=== PATIENT | female | born 1940 | race Two or more races ===

== ENCOUNTER 2024-03-16 20:51 | Emergency (ER) | payer MEDICARE, MEDICAID, SELFPAY ==
[2024-03-16 21:50] VITALS: BP 218/89; BP 230/134; PULSE 70; RESP 18; TEMP 36.8; O2SAT 98; BMI 23.3
--- NOTE | 2024-03-16 22:02 | EDRME_ITS ---
Rapid Medical Screening Exam [facility] Arrival date/time: 03/16/24 20:51 83F with history of HTN (on Losartan) presents to ED with 2 hours of LOZANO and elevated BP. Chief Complaint: General Adult/Misc Complain Vital signs: Vital Signs Temperature 98.3 F 03/16/24 21:50 Pulse Rate 70 03/16/24 21:50 Respiratory Rate 18 03/16/24 21:50 Blood Pressure 218/89 H 03/16/24 21:50 Pulse Oximetry (%) 98 03/16/24 21:50 Oxygen Delivery Method Room Air 03/16/24 21:50
--- NOTE | 2024-03-16 22:02 | XR_ITS ---
Examination: CT brain head without contrast. 2-D sagittal coronal reconstructions Date and time of exam:March 16, 2024 1040 hrs. Indications: Onset headache today Comparison: January 27, 2024 CTDI: vol (mGy):48.50 DLP: (mGycm):994 Technique: Multiple CT axial sections of the brain have been obtained, 5 mm slice thickness. Contrast has not been administered. 2-D sagittal, coronal reconstructions have been obtained Low dose protocols were performed. One or more of the following dose reduction techniques were used; automated exposure control, adjustment of the mA and/or KV according to patient size, use of iterative reconstruction technique. Findings: No significant ventricular enlargement. Intra-axial or extra-axial hemorrhage density is not seen. No mass effect or midline shift Basal cisterns are not remarkable. Fourth ventricle is midline. Cranial vault intact. Impression: Negative for acute hemorrhage, mass effect or midline shift
[2024-03-16 22:20] VITALS: BP 218/89; PULSE 70
[2024-03-16] MEDS: hydrALAZINE HCL 25 MG TABLET PO (22:20)
[2024-03-17 00:41] VITALS: BP 233/81
[2024-03-17 01:07] VITALS: BP 210/81; PULSE 70; RESP 21; TEMP 37.1; O2SAT 97
--- NOTE | 2024-03-17 01:43 | EDNOTE_ITS ---
ED General RME/HPI General Chief complaint: General Adult/Misc Complain Stated complaint: BP high Arrival date/time: 03/16/24 20:51 RME / HPI RME / HPI narrative: 03/16/24 20:51 83F with history of HTN (on Losartan) presents to ED with 2 hours of LOZANO and elevated BP. ---- Dr. Pate?s Main ED Evaluation: 83yo female with pmhx HTN presents to the ED for a chief complaint of elevated blood pressure. Patient states she checked her blood pressure three time at home last night and had a systolic blood pressure of over 200 each time, so she came in for evaluation. She endorses associated neck pain and hot flashes. She denies any headache, dizziness, chest pain, shortness of breath, abdominal pain, back pain or any other associated symptoms. Denies any falls, injuries or loss of consciousness. Related Data Home Medications ?Medication ?Instructions ?Recorded ?Confirmed fenofibrate 160 mg tablet 160 mg PO QDAY ##0 12/29/13 05/18/18 thyroid (pork) 60 mg tablet 60 mg PO QDAY #0 tabs 12/29/13 05/18/18 (Roberta Thyroid) pantoprazole 40 mg tablet,delayed 40 mg PO QDAY ##0 08/19/14 05/18/18 release (Protonix) esterified 1 tab PO QDAY 05/18/18 05/18/18 estrogens-methyltestosterone 0.625 mg-1.25 mg tablet fenofibrate 160 mg tablet 160 mg PO QDAY 05/18/18 05/18/18 pravastatin 40 mg tablet 40 mg PO QDAY 05/18/18 05/18/18 valsartan 160 mg tablet 160 mg PO QDAY 05/18/18 05/18/18 Previous Rx's ?Medication ?Instructions ?Recorded diclofenac 1 % and meth salicylate See Rx Instructions .Route 04/17/22 30 %-menthol 10 % topical gel,cream .COMPLEX PRN pain #418 grams amlodipine 5 mg tablet 5 mg PO QDAY #30 tabs 05/10/22 Allergies Allergy/AdvReac Type Severity Reaction Status Date / Time codeine Allergy Severe SEVERE Verified 04/17/22 11:05 NAUSEA AND VOMITING Penicillins Allergy Unknown Verified 05/09/22 18:42 Review of Systems Review of Systems Systems Reviewed: All systems reviewed, normal except as documented Past Medical History Past Medical History NEUROLOGIC: Negative Neurological Disorders, Seizures or Head Trauma CARDIAC: Positive Cardiac Disorders, Hypercholesterolemia and Hypertension; Negative Congestive Heart Failure RESPIRATORY: Negative Chronic Obstructive Pulmonary Disease (COPD) GASTROINTESTINAL: Positive Gastrointestinal Disorders, Ulcer and Gastroesophageal Reflux Disease GENITOURINARY: Negative Genitourinary Disorders or Renal Disease REPRODUCTIVE: Negative Previous Pregnancies MUSCULOSKELETAL: Positive Musculoskeletal Disorders, Osteoporosis and Degenerative Disk Disease ENT: Negative Head Trauma ENDOCRINE: Positive Diabetes Mellitus Type 2; Negative Endocrine Disorders, Diabetes Mellitus Type 1 or Hypothyroidism HEMATOLOGIC: Negative Blood Disorders or Anemia PSYCHO/SOCIAL: Positive Depression and Anxiety OTHER HISTORY: Negative Hospitalization, Developmental Delay, Falls, Blood Transfusions, Anesthesia Reactions, Chemotherapy or Radiation Therapy Surgical History SURGICAL: Positive Hysterectomy Social History SMOKING STATUS: Former smoker SUBSTANCE USE: does not use ED Exam Narrative Physical exam: GENERAL APPEARANCE: alert and oriented x 4, well-developed, well-nourished, no acute distress VITALS: All vitals were reviewed and the pulse ox is 97% on room air, which is normal according to my interpretation. HEENT: Normocephalic, atraumatic; pupils equal, round, reactive to light; EOMI; mucous membranes pink, moist; oropharynx clear NECK: Supple LUNGS: CTABL; no wheezes, no rales, no rhonchi HEART: Regular rate, regular rhythm; normal S1, S2; no murmurs ABDOMEN: non distended; normal BS; soft, no tenderness, no guarding, no rebound; no masses, no organomegaly, no hernia BACK: no CVA tenderness EXTREMITIES: atraumatic; no edema NEUROLOGIC: awake; alert and oriented x4; cranial nerves II-XII grossly intact; no focal sensory or motor deficits PSYCHIATRIC: appropriate mood and affect SKIN: warm, dry, normal color; no rashes Course Quality Measures none Orders Category Date Time Status EKG (ED ONLY) *Do not use* NOW Care 03/16/24 21:[address] head/brain wo con Stat Exams 03/16/24 22:02 Completed EKG (ED Only) Stat Exams 03/16/24 21:08 Ordered cloNIDine HCL [Catapres] Med 03/17/24 02:08 Discontinued 0.1 mg PO X1 ONE hydrALAZINE HCL [Apresoline] Med 03/16/24 22:03 Discontinued 25 mg PO X1 ONE Vital Signs Vital signs: Vital Signs Temperature 98.3 F 11/27/24 21:50 Pulse Rate 70 03/16/24 21:50 Respiratory Rate 18 03/16/24 21:50 Blood Pressure 218/89 H 03/16/24 21:50 Pulse Oximetry (%) 98 03/16/24 21:50 Oxygen Delivery Method Room Air 03/16/24 21:50 [facility] Patient data External records reviewed:: [facility] previous records (Per chart review, patient was seen here on 05/09/22 for hypertensive urgency.) Clinical information provided by:: patient Social determinants that could affect healthcare access:: none Patient has the following chronic illnesses:: HTN, HLD, DM How is presenting disease/condition affected by chronic disease/condition?: exacerbated by Evaluation data The following diagnostics were reviewed and interpreted by me:: radiology exam(s) and EKG tracing(s) Lab and/or radiology exams considered but not ordered:: none Interpretation Summary: EKG done at 2155, NSR, rate of 73, normal axis, no ectopy, no acute ischemia, according to my interpretation. ---- [facility] Report Signed Patient: DYLON CHAVEZ Record#: [id number] Birthdate: 1940 Age/Sex: 83 / F Location: [facility] Attending Dr: Ordering Physician: Ron Zambrano PA-C Date of Service: 03/16/24 Procedure(s): CT head/brain wo con Accession Number(s): [id number] cc: Erich Valenzuela MD; NO PRIMARY/FAMILY,PHYSICIAN; Ron Zambrano PA-C~ Examination: CT brain head without contrast. 2-D sagittal coronal reconstructions Date and time of exam:March 16, 2024 1040 hrs. Indications: Onset headache today Comparison: January 27, 2024 CTDI: vol (mGy):48.50 DLP: (mGycm):994 Technique: Multiple CT axial sections of the brain have been obtained, 5 mm slice thickness. Contrast has not been administered. 2-D sagittal, coronal reconstructions have been obtained Low dose protocols were performed. One or more of the following dose reduction techniques were used; automated exposure control, adjustment of the mA and/or KV according to patient size, use of iterative reconstruction technique. Findings: No significant ventricular enlargement. Intra-axial or extra-axial hemorrhage density is not seen. No mass effect or midline shift Basal cisterns are not remarkable. Fourth ventricle is midline. Cranial vault intact. Impression: Negative for acute hemorrhage, mass effect or midline shift Dictated By: Erich Valenzuela MD Signed By: <Electronically signed by Erich Valenzuela MD in [place]> 03/16/24 2342 Medications Medications considered but not ordered:: none Medication administrations:: Medication Administration History Discontinued Medications Clonidine (Clonidine Hcl 0.1 Mg Tablet) 0.1 mg PO X1 ONE Stop: 03/17/24 02:09 Last Admin: 03/17/24 02:15 Dose: 0.1 mg Documented By: DB Hydralazine HCl (Hydralazine Hcl 25 Mg Tablet) 25 mg PO X1 ONE Stop: 03/16/24 22:04 Last Admin: 03/16/24 22:20 Dose: 25 mg Documented By: OA see above Consultations Consultation(s) initiated? (list below): No Diagnosis Differential Diagnosis ED Complaint MDM: uncontrolled HTN, hypertensive urgency, hypertensive emergency Most likely diagnosis given after review of the tests above:: see below Admission Indicated Admission indicated?: not indicated Explain why admission is indicated or not indicated:: Admission criteria not met. Admission Request Was there a request for admission?: No Disposition Plan Disposition Plan: Discharge Discharge Attestation Discharge Attestation: The patient and all family members were given an opportunity to ask questions and understood the discharge instructions. Discharge instructions specifically effects, indications for sooner follow up or return to the emergency department, and the expected course of current diagnosis. Patient condition: Stable Medical Decision Making Differential Diagnosis Differential Diagnosis: uncontrolled HTN, hypertensive urgency, hypertensive emergency Discharge Plan Plan Patient Disposition: HOME (Self Care) Disposition Comment: Stable for discharge Patient condition on transfer: Stable Prescriptions/Referrals Prescriptions/Med Rec: No Action fenofibrate 160 MG tablet 160 mg PO QDAY Qty: 0 thyroid (pork) [Roberta Thyroid] 60 MG tablet 60 mg PO QDAY Qty: 0 pantoprazole [Protonix] 40 MG tablet,delayed release (DR/EC) 40 mg PO QDAY Qty: 0 Patient Comments: TO SUPPRESS [employer]IONS estrogens-methyltestosterone 0.625-1.25 mg Tablet 1 tab PO QDAY pravastatin 40 mg Tablet 40 mg PO QDAY valsartan 160 mg Tablet 160 mg PO QDAY fenofibrate 160 mg Tablet 160 mg PO QDAY amlodipine 5 mg tablet 5 mg PO QDAY Qty: 30 0RF diclofenac-met salicyl-menthol 1-30-10 % combo pack,cream and gel See Rx Instructions .ROUTE .COMPLEX PRN (Reason: pain) Qty: 418 0RF Rx Instructions: APPLY TO MOST PAINFUL AREA Q12H PRN PAIN, INSTRUCTIONS IN DUTCH PLEASE Referrals: No Primary/Family,Physician [Primary Care Provider] - In 1 week Problem List Clinical Impression: Hypertension Patient/Caregiver Discharge Instructions Discharge Activity: activity as tolerated Education Materials: Controlling High Blood Pressure, Blood Pressure Check Steps, ED High Blood Pressure ... Additional Instructions: Please return to the emergency department if you have any worsening or any further medical problems whatsoever Please follow-up with your primary care doctor within the next several days. Be sure to take all medications as directed. It has been a pleasure treating you today. Please feel free to return if you need us for anything Print Language: Italian Stand Alone Forms: Nancy Award Info., Patient Portal Info Letter
[2024-03-17 02:03] VITALS: BP 215/68; PULSE 65; RESP 17; O2SAT 98
[2024-03-17 02:15] VITALS: BP 215/68; PULSE 63
[2024-03-17] MEDS: cloNIDine HCL 0.1 MG TABLET PO (02:15)
[2024-03-17 02:21] VITALS: BP 184/74; PULSE 80; RESP 16; TEMP 36.9; O2SAT 97
== END 2024-03-17 02:22 | disposition home or self-care (01) ==
PROVIDERS: Emergency Provider Emergency Medicine
DX: I10 Essential (primary) hypertension (principal); Z87.891 Personal history of nicotine dependence; R51.9 Headache, unspecified; E78.00 Pure hypercholesterolemia, unspecified
CPT/HCPCS: 70450; 93005; 99284; A9270

== ENCOUNTER 2024-03-21 21:15 | Emergency (ER) | payer MEDICARE, MEDICAID, SELFPAY ==
[2024-03-21 21:59] VITALS: BP 200/62; BP 207/69; PULSE 61; RESP 16; TEMP 36.6; O2SAT 97
--- NOTE | 2024-03-21 22:12 | EKG_ITS ---
[facility] Test Date: 2024-03-21 Pat Name: DYLON CHAVEZDepartment: Room: - Gender: Female Np: : 1940 Requested By: [place] ([facility]) Order Number: [id number] Reading MD: [place] ([facility]) Measurements Intervals [place] Rate: 56 P: 46 NC: 168 QRS: -28 QRSD: 114 T: 33 QT: 385 QTc: 374 Interpretive Statements SINUS BRADYCARDIA BORDERLINE LEFT AXIS DEVIATION [QRS AXIS < -20] MODERATE INTRAVENTRICULAR CONDUCTION DELAY [110+ ms QRS DURATION] MINIMAL VOLTAGE CRITERIA FOR LVH, CONSIDER NORMAL VARIANT [MEETS CRITERIA IN ONE OF: R(aVL), S(V1), R(V5), R(V5/V6)+S(V1)] No previous ECG available for comparison /store/S0/[id number]/ecg/[id number].pdf
--- NOTE | 2024-03-21 22:12 | XR_ITS ---
Examination: PA lateral chest 2 views Technique: Upright PA lateral chest 2 views Exam date and time: March 21, 2024 1024 hrs. Indications: Chest pain today. Findings: Normal heart size Lungs are clear. Significant osteopenia Minor subsegmental atelectasis both lungs Impression: No lobar pneumonia or pulmonary edema
--- NOTE | 2024-03-21 22:13 | PD.EDRME ---
Rapid Medical Screening Exam RME Arrival date/time: 03/21/24 21:15 83-year-old female past medical history of hypertension, diabetes, hyperlipidemia, and on blood thinner presents emergency department complaining of headache and elevated blood pressure. Chief Complaint: General Adult/Misc Complain Time Seen by Provider: 03/21/24 22:07 Vital signs: Vital Signs Temperature 97.9 F 03/21/24 21:59 Pulse Rate 61 03/21/24 21:59 Respiratory Rate 16 03/21/24 21:59 Blood Pressure 200/62 H 03/21/24 21:59 Pulse Oximetry (%) 97 03/21/24 21:59 Oxygen Delivery Method Room Air 03/21/24 21:59 Vital signs reviewed by provider: Yes
[2024-03-21 23:02] LABS: Collection Type, Urine Clean Catch
[2024-03-21 23:08] LABS: Basophils # (Auto) 0.1 Thou/mm3 (0.0-0.2); Basophils % (Auto) 1 % (0-2.5); Eosinophils # (Auto) 0.1 Thou/mm3 (0.0-0.5); Eosinophils % (Auto) 1 % (0-10); Hemoglobin 12.5 g/dL (12.0-16.0); Immature Granulocytes % (Auto) 1 % (0-0); Immature Granulocytes Auto 0.04 Thou/mm3 (0.00-0.00); Lymphocytes # (Auto) 3.6 Thou/mm3 (1.0-4.8); Lymphocytes % (Auto) 44 % (10-50); Mean Corpuscular HGB Conc 34.7 g/dl (31.0-37.0); Mean Corpuscular Hemoglobin 32.1 pg (25.0-35.0); Mean Corpuscular Volume 93 fL (80-100); Monocytes # (Auto) 0.6 Thou/mm3 (0.0-0.8); Monocytes % (Auto) 8 % (0-12); Neutrophils # (Auto) 3.7 Thou/mm3 (1.8-7.7); Neutrophils % (Auto) 46 % (37-80); Nucleated Red Blood Cell % 0 /100 WBC (0); Platelet Count 315 Thou/mm3 (140-440); RDW Standard Deviation 46.6 fL (36.4-46.3); Red Blood Count 3.89 Miln/mm3 (4.00-5.20)
[2024-03-21 23:20] LABS: Bacteria,Urine Rare; Bilirubin,Urine Negative (Negative); Blood,Urine 1+ (Negative); Clarity,Urine Clear (Clear/Hazy); Color,Urine Colorless (Lt Yel-Yel); Culture Indicated,Urine Not Indicated; Glucose, Urine Negative (Negative); Ketones,Urine Negative (Negative); Leukocyte Esterase,Urine Positive (Negative); Nitrite,Urine Negative (Negative); Protein,Urine Negative (Neg - Trace); RBC,Urine 2 /hpf (0-3); Specific Gravity,Urine 1.007 (1.001-1.035); Squamous Epithelial Cell,Urine < 1 /hpf (0-5); Urobilinogen,Urine Negative mg/dL (0.0-1.0); WBC,Urine 3 /hpf (0-5)
[2024-03-21 23:28] LABS: B-Type Natriuretic Peptide 30 pg/mL (0-100)
[2024-03-21 23:29] LABS: INR 1.1 (0.9-1.3); Partial Thromboplastin Time 24.2 Seconds (22.0-36.0); Prothrombin Time 12.4 Seconds (9.0-12.2)
[2024-03-21 23:31] LABS: Alanine Aminotransferase 11 U/L (10-49); Albumin/Globulin Ratio 2.1 (1.2-2.2); Alkaline Phosphatase 41 U/L (46-116); Anion Gap 9 (7-16); Aspartate Amino Transferase 20 U/L (0-34); BUN/Creatinine Ratio 20 Ratio (12-20); Bilirubin,Total 0.4 mg/dL (0.3-1.2); Blood Urea Nitrogen 18 mg/dL (9-23); Carbon Dioxide 26.2 mMol/L (20.0-31.0); Chloride 104 mMol/L (98-107); Creatinine (Component) 0.9 mg/dL (0.6-1.3); Globulin 2.4 gm/dL (2.3-3.5); Glucose 103 mg/dL (74-106); Magnesium 2.1 mg/dL (1.6-2.6); Osmolality,Calculated 279 (275-295); Potassium 3.8 mMol/L (3.4-5.1); Sodium 139 mMol/L (136-145); Total Protein 7.4 gm/dL (5.7-8.2); Troponin I < 0.020 ng/mL (0.0-0.045); eGFR > 60 See Note
[2024-03-21 23:54] VITALS: BP 187/71; PULSE 59; RESP 18; O2SAT 98
--- NOTE | 2024-03-22 00:18 | EDNOTE_ITS ---
ED General RME/HPI General Chief complaint: General Adult/Misc Complain Stated complaint: HIGH BP Time Seen by Provider: 03/21/24 22:07 Source: patient Arrival date/time: 03/21/24 21:15 Mode of arrival: ambulatory Limitations: no limitations RME / HPI RME / HPI narrative: 03/21/24 21:15 83-year-old female past medical history of hypertension, diabetes, hyperlipidemia, and on blood thinner presents emergency department complaining of headache and elevated blood pressure. DR GOODWIN MAIN ED EVALUATION: 83-year-old female with a history of hypertension, diabetes, and hyperlipidemia presents to the emergency department with complaints of headache and elevated blood pressure. The headache is described as aching, with a severity of 2/10. She was last evaluated in this facility on 03/16/24 for similar symptoms, diagnosed with hypertensive urgency, and was discharged. The patient is currently on losartan for hypertension management. Related Data Home Medications ?Medication ?Instructions ?Recorded ?Confirmed fenofibrate 160 mg tablet 160 mg PO QDAY ##0 12/29/13 05/18/18 thyroid (pork) 60 mg tablet 60 mg PO QDAY #0 tabs 12/29/13 05/18/18 ([place] Thyroid) pantoprazole 40 mg tablet,delayed 40 mg PO QDAY ##0 08/19/14 05/18/18 release (Protonix) esterified 1 tab PO QDAY 05/18/18 05/18/18 estrogens-methyltestosterone 0.625 mg-1.25 mg tablet fenofibrate 160 mg tablet 160 mg PO QDAY 05/18/18 05/18/18 pravastatin 40 mg tablet 40 mg PO QDAY 05/18/18 05/18/18 valsartan 160 mg tablet 160 mg PO QDAY 05/18/18 05/18/18 Previous Rx's ?Medication ?Instructions ?Recorded diclofenac 1 % and meth salicylate See Rx Instructions .Route 04/17/22 30 %-menthol 10 % topical gel,cream .COMPLEX PRN pain #418 grams amlodipine 5 mg tablet 5 mg PO QDAY #30 tabs 05/10/22 Allergies Allergy/AdvReac Type Severity Reaction Status Date / Time codeine Allergy Severe SEVERE Verified 03/21/24 21:17 NAUSEA AND VOMITING Penicillins Allergy Unknown Verified 03/21/24 21:17 Review of Systems Review of Systems Systems Reviewed: All systems reviewed, normal except as documented Past Medical History Past Medical History NEUROLOGIC: Negative Neurological Disorders, Seizures or Head Trauma CARDIAC: Positive Cardiac Disorders, Hypercholesterolemia and Hypertension; Negative Congestive Heart Failure RESPIRATORY: Negative Chronic Obstructive Pulmonary Disease (COPD) GASTROINTESTINAL: Positive Gastrointestinal Disorders, Ulcer and Gastroesophageal Reflux Disease GENITOURINARY: Negative Genitourinary Disorders or Renal Disease REPRODUCTIVE: Negative Previous Pregnancies MUSCULOSKELETAL: Positive Musculoskeletal Disorders, Osteoporosis and Degenerative Disk Disease ENT: Negative Head Trauma ENDOCRINE: Positive Diabetes Mellitus Type 2; Negative Endocrine Disorders, Diabetes Mellitus Type 1 or Hypothyroidism HEMATOLOGIC: Negative Blood Disorders or Anemia PSYCHO/SOCIAL: Positive Depression and Anxiety OTHER HISTORY: Negative Hospitalization, Developmental Delay, Falls, Blood Transfusions, Anesthesia Reactions, Chemotherapy or Radiation Therapy Surgical History SURGICAL: Positive Hysterectomy Social History SMOKING STATUS: Current some day smoker SUBSTANCE USE: does not use ED Exam Narrative Physical exam: GENERAL APPEARANCE: alert and oriented x 4, well-developed, well-nourished, no acute distress VITALS: All vitals were reviewed and the pulse ox is 97% on room air, which is normal according to my interpretation. HEENT: Normocephalic, atraumatic; pupils equal, round, reactive to light; EOMI; mucous membranes pink, moist; oropharynx clear NECK: Supple LUNGS: CTABL; no wheezes, no rales, no rhonchi HEART: Regular rate, regular rhythm; normal S1, S2; no murmurs ABDOMEN: non distended; normal BS; soft, no tenderness, no guarding, no rebound; no masses, no organomegaly, no hernia BACK: no CVA tenderness EXTREMITIES: atraumatic; no edema NEUROLOGIC: awake; alert and oriented x4; cranial nerves II-XII grossly intact; no focal sensory or motor deficits PSYCHIATRIC: appropriate mood and affect SKIN: warm, dry, normal color; no rashes General Limitations: Present no limitations Course Course Course Narrative: CXR is ordered for determining etiology of atypical chest pain. Quality Measures none Orders Category Date Time Status EKG (ED ONLY) *Do not use* NOW Care 03/21/24 22:12 Completed EKG (ED Only) Stat Exams 03/21/24 22:12 Draft XR chest 2V Stat Exams 03/21/24 22:12 Completed B-Type Natriuretic Peptide Stat Lab 03/21/24 22:51 Completed CBC Stat Lab 03/21/24 22:51 Completed Comprehensive Metabolic Panel Stat Lab 03/21/24 22:51 Completed Magnesium Stat Lab 03/21/24 22:51 Completed Partial Thromboplastin Time Stat Lab 03/21/24 22:51 Completed Prothrombin Time with INR Stat Lab 03/21/24 22:51 Completed Troponin I Stat Lab 03/21/24 22:51 Completed Urinalysis, C/S if Indicated Stat Lab 03/21/24 22:51 Completed hydrALAZINE HCL [Apresoline] Med 03/21/24 22:13 Discontinued 10 mg PO X1 ONE hydrALAZINE HCL [Apresoline] Med 03/22/24 01:27 Discontinued 25 mg PO X1 ONE Vital Signs Vital signs: Vital Signs Temperature 97.9 F 03/21/24 21:59 Pulse Rate 61 03/21/24 21:59 Respiratory Rate 16 03/21/24 21:59 Blood Pressure 200/62 H 03/21/24 21:59 Pulse Oximetry (%) 97 03/21/24 21:59 Oxygen Delivery Method Room Air 03/21/24 21:59 Procedures -ED Procedure Comment EKG manual reading, 03/21/24 2217 hours, my interpretation: sinus haider, rate: 56bpm, no ST elevation, no acute ischemic changes, interpreted as normal MDM Patient data External records reviewed:: [facility] previous records Clinical information provided by:: patient Social determinants that could affect healthcare access:: none Patient has the following chronic illnesses:: hypertension, diabetes, and hyperlipidemia How is presenting disease/condition affected by chronic disease/condition?: c aused by Evaluation data The following diagnostics were reviewed and interpreted by me:: lab results, radiology exam(s) and EKG tracing(s) Lab and/or radiology exams considered but not ordered:: n/a Interpretation Summary: Exam date and time: March 21, 2024 1024 hrs. Indications: Chest pain today. Findings: Normal heart size Lungs are clear. Significant osteopenia Minor subsegmental atelectasis both lungs Impression: No lobar pneumonia or pulmonary edema Dictated By: Erich Vaelnzuela MD Medications Medications considered but not ordered:: n/a Medication administrations:: Medication Administration History Discontinued Medications Hydralazine HCl (Hydralazine Hcl 10 Mg Tablet) 10 mg PO X1 ONE Stop: 03/21/24 22:14 Last Admin: 03/22/24 00:50 Dose: 10 mg Documented By: DEBI Hydralazine HCl (Hydralazine Hcl 25 Mg Tablet) 25 mg PO X1 ONE Stop: 03/22/24 01:28 Last Admin: 03/22/24 01:35 Dose: Not Given Documented By: ROLO Non-Admin Reason: Discontinued as above Consultations Consultation(s) initiated? (list below): No Diagnosis Differential Diagnosis ED Complaint MDM: uncontrolled HTN, hypertensive urgency, hypertensive emergency Most likely diagnosis given after review of the tests above:: Hypertensive urgency Admission Indicated Admission indicated?: not indicated Explain why admission is indicated or not indicated:: Patient has no emergent abnormalities in their studies and can be managed on an outpatient basis. Admission Request Was there a request for admission?: No Disposition Plan Disposition Plan: Discharge Discharge Attestation Discharge Attestation: The patient and all family members were given an opportunity to ask questions and understood the discharge instructions. Discharge instructions specifically effects, indications for sooner follow up or return to the emergency department, and the expected course of current diagnosis. Patient condition: Stable Medical Decision Making MDM Narrative MDM Narrative: Scribe Attestation: Chris Perez am scribing for and in the presence of Dr. Goodwin. Provider Notation: Although this document has been carefully reviewed, there may still be some phonetic and other typographical errors. These errors are purely grammatical due to imperfections in the software program and should not be construed in any way to compromise the substance of the patient's medical care during this visit. Differential Diagnosis Differential Diagnosis: uncontrolled HTN, hypertensive urgency, hypertensive emergency Lab Data 03/21/24 22:51 03/21/24 22:51 Labs: Lab Results 03/21/24 Range/Units 22:51 WBC 8.0 (3.6-11.0) Thou/mm3 RBC 3.89 L (4.00-5.20) Miln/mm3 Hgb 12.5 (12.0-16.0) g/dL Hct 36.0 (36.0-46.0) % MCV 93 (80-100) fL MCH 32.1 (25.0-35.0) pg MCHC 34.7 (31.0-37.0) g/dl RDW Std Deviation 46.6 H (36.4-46.3) fL Plt Count 315 (140-440) Thou/mm3 Neut % (Auto) 46 (37-80) % Lymph % (Auto) 44 (10-50) % [place] % (Auto) 8 (0-12) % Eos % (Auto) 1 (0-10) % Baso % (Auto) 1 (0-2.5) % Neut # (Auto) 3.7 (1.8-7.7) Thou/mm3 Lymph # (Auto) 3.6 (1.0-4.8) Thou/mm3 Trinity # (Auto) 0.6 (0.0-0.8) Thou/mm3 Eos # (Auto) 0.1 (0.0-0.5) Thou/mm3 Baso # (Auto) 0.1 (0.0-0.2) Thou/mm3 Immature Gran # (Auto) 0.04 H (0.00-0.00) Thou/mm3 Absolute Nucleated RBC 0.00 (0.00-0.00) Thou/mm3 Immature Gran % 1 H (0-0) % Nucleated RBC % 0 (0) /100 WBC PT 12.4 H (9.0-12.2) Seconds INR 1.1 (0.9-1.3) APTT 24.2 (22.0-36.0) Seconds Sodium 139 (136-145) mMol/L Potassium 3.8 (3.4-5.1) mMol/L Chloride 104 (98-107) mMol/L Carbon Dioxide 26.2 (20.0-31.0) mMol/L Anion Gap 9 (7-16) BUN 18 (9-23) mg/dL Creatinine 0.9 (0.6-1.3) mg/dL Estim Creat Clear Calc Not Performed. eGFR > 60 (60 - ) See Note BUN/Creatinine Ratio 20 (12-20) Ratio Glucose 103 (74-106) mg/dL Calculated Osmolality 279 (275-295) Calcium 10.0 (8.3-10.6) mg/dL Corrected Calcium 10.0 (8.5-10.1) mg/dL Magnesium 2.1 (1.6-2.6) mg/dL Total Bilirubin 0.4 (0.3-1.2) mg/dL AST 20 (0-34) U/L ALT 11 (10-49) U/L Alkaline Phosphatase 41 L (46-116) U/L Troponin I < 0.020 (0.0-0.045) ng/mL B-Natriuretic Peptide 30 (0-100) pg/mL Total Protein 7.4 (5.7-8.2) gm/dL Albumin 5.0 H (3.4-4.8) gm/dL Globulin 2.4 (2.3-3.5) gm/dL Albumin/Globulin Ratio 2.1 (1.2-2.2) Ur Collection Type Clean Catch Urine Color Colorless A (Lt Yel-Yel) Urine Clarity Clear (Clear/Hazy) Urine pH 6.0 (5.0-7.0) Ur Specific [place] 1.007 (1.001-1.035) Urine Protein Negative (Neg - Trace) Urine Glucose (UA) Negative (Negative) Urine Ketones Negative (Negative) Urine Blood 1+ A (Negative) Urine Nitrite Negative (Negative) Urine Bilirubin Negative (Negative) Urine Urobilinogen (Auto) Negative (0.0-1.0) mg/dL Ur Leukocyte Esterase Positive (Negative) Urine RBC 2 (0-3) /hpf Urine WBC 3 (0-5) /hpf Ur Squamous Epith Cells < 1 (0-5) /hpf Urine Bacteria Rare (None) Ur Culture Indicated? Not Indicated Discharge Plan Plan Patient Disposition: HOME (Self Care) Prescriptions/Referrals Prescriptions/Med Rec: No Action fenofibrate 160 MG tablet 160 mg PO QDAY Qty: 0 thyroid (pork) [[place] Thyroid] 60 MG tablet 60 mg PO QDAY Qty: 0 pantoprazole [Protonix] 40 MG tablet,delayed release (DR/EC) 40 mg PO QDAY Qty: 0 Patient Comments: TO SUPPRESS GASTRIC SECRETIONS estrogens-methyltestosterone 0.625-1.25 mg Tablet 1 tab PO QDAY pravastatin 40 mg Tablet 40 mg PO QDAY valsartan 160 mg Tablet 160 mg PO QDAY fenofibrate 160 mg Tablet 160 mg PO QDAY amlodipine 5 mg tablet 5 mg PO QDAY Qty: 30 0RF diclofenac-met salicyl-menthol 1-30-10 % combo pack,cream and gel See Rx Instructions .ROUTE .COMPLEX PRN (Reason: pain) Qty: 418 0RF Rx Instructions: APPLY TO MOST PAINFUL AREA Q12H PRN PAIN, INSTRUCTIONS IN [place]EMENI PLEASE Referrals: Keith Lopez MD [Primary Care Provider] - In 1 week Problem List Clinical Impression: Hypertensive urgency Patient/Caregiver Discharge Instructions Education Materials: ED High Blood Pressure ... Print Language: Uzbek Stand Alone Forms: Nancy Award Info., Patient Portal Info Letter
[2024-03-22 00:25] VITALS: BP 171/89; PULSE 58; RESP 18; TEMP 36.8; O2SAT 96
[2024-03-22 00:50] VITALS: BP 171/69; PULSE 54
[2024-03-22] MEDS: hydrALAZINE HCL 10 MG TABLET PO (00:50)
[2024-03-22 01:13] VITALS: BP 179/90; PULSE 53; RESP 18; O2SAT 98
[2024-03-22 02:20] VITALS: BP 177/93; PULSE 56; RESP 18; TEMP 36.4; O2SAT 97
== END 2024-03-22 02:21 | disposition home or self-care (01) ==
PROVIDERS: Emergency Provider Emergency Medicine; PCP Family Medicine
DX: I16.0 Hypertensive urgency (principal); I10 Essential (primary) hypertension; R00.1 Bradycardia, unspecified; F17.210 Nicotine dependence, cigarettes, uncomplicated
CPT/HCPCS: 36415; 71046; 80053; 81001; 83735; 83880; 84484; 85025; 85610; 85730; 93005; 99283; A9270

== ENCOUNTER 2024-03-26 23:34 | Emergency (ER) | payer MEDICARE, MEDICAID, SELFPAY ==
[2024-03-27 00:02] VITALS: BP 185/80; PULSE 86; RESP 17; TEMP 36.9; O2SAT 97
[2024-03-27 00:41] VITALS: BP 185/80; PULSE 86
[2024-03-27] MEDS: hydrALAZINE HCL 25 MG TABLET PO (00:41)
--- NOTE | 2024-03-27 02:18 | EDNOTE_ITS ---
ED General RME/HPI General Chief complaint: General Adult/Misc Complain Stated complaint: high blood pressure, facial flushing Time Seen by Provider: 03/27/24 00:34 Arrival date/time: 03/26/24 23:34 83F with history of HTN presents to ED with elevated B and she's worried about it. Patient has no other complaints. Patient has been here twice in the last few days for this with normal cardiac work-up. Limitations: no limitations Related Data Home Medications ?Medication ?Instructions ?Recorded ?Confirmed fenofibrate 160 mg tablet 160 mg PO QDAY ##0 12/29/13 05/18/18 thyroid (pork) 60 mg tablet 60 mg PO QDAY #0 tabs 12/29/13 05/18/18 ([place] Thyroid) pantoprazole 40 mg tablet,delayed 40 mg PO QDAY ##0 08/19/14 05/18/18 release (Protonix) esterified 1 tab PO QDAY 05/18/18 05/18/18 estrogens-methyltestosterone 0.625 mg-1.25 mg tablet fenofibrate 160 mg tablet 160 mg PO QDAY 05/18/18 05/18/18 pravastatin 40 mg tablet 40 mg PO QDAY 05/18/18 05/18/18 valsartan 160 mg tablet 160 mg PO QDAY 05/18/18 05/18/18 Previous Rx's ?Medication ?Instructions ?Recorded diclofenac 1 % and meth salicylate See Rx Instructions .Route 04/17/22 30 %-menthol 10 % topical gel,cream .COMPLEX PRN pain #418 grams amlodipine 5 mg tablet 5 mg PO QDAY #30 tabs 05/10/22 Allergies Allergy/AdvReac Type Severity Reaction Status Date / Time codeine Allergy Severe SEVERE Verified 03/26/24 23:36 NAUSEA AND VOMITING Penicillins Allergy Unknown Verified 03/26/24 23:36 Review of Systems Review of Systems Systems Reviewed: All systems reviewed, normal except as documented Constitutional Constitutional: Reports system reviewed and no additional complaints, except as documented, Denies fever(s) and Denies headache(s) ENT Ears, Nose, Mouth, and Throat: Denies disequilibrium and Denies headache(s) Cardiovascular Cardiovascular: Reports system reviewed and no additional complaints, except as documented, Denies chest pain and Denies dyspnea Respiratory Respiratory: Reports system reviewed and no additional complaints, except as documented, Denies cough and Denies dyspnea Gastrointestinal Gastrointestinal: Reports system reviewed and no additional complaints, except as documented, Denies abdominal pain, Denies nausea and Denies vomiting Neurologic Neurologic: Reports system reviewed and no additional complaints, except as documented, Denies confusion, Denies disequilibrium and Denies headache(s) Psychiatric Psychiatric: Denies confusion Past Medical History Past Medical History NEUROLOGIC: Negative Neurological Disorders, Seizures or Head Trauma CARDIAC: Positive Cardiac Disorders, Hypercholesterolemia and Hypertension; Negative Congestive Heart Failure RESPIRATORY: Negative Chronic Obstructive Pulmonary Disease (COPD) GASTROINTESTINAL: Positive Gastrointestinal Disorders, Ulcer and Gastroesophageal Reflux Disease GENITOURINARY: Negative Genitourinary Disorders or Renal Disease REPRODUCTIVE: Negative Previous Pregnancies MUSCULOSKELETAL: Positive Musculoskeletal Disorders, Osteoporosis and Degenerative Disk Disease ENT: Negative Head Trauma ENDOCRINE: Positive Diabetes Mellitus Type 2; Negative Endocrine Disorders, Diabetes Mellitus Type 1 or Hypothyroidism HEMATOLOGIC: Negative Blood Disorders or Anemia PSYCHO/SOCIAL: Positive Depression and Anxiety OTHER HISTORY: Negative Hospitalization, Developmental Delay, Falls, Blood Transfusions, Anesthesia Reactions, Chemotherapy or Radiation Therapy Surgical History SURGICAL: Positive Hysterectomy Social History SMOKING STATUS: Never smoker SUBSTANCE USE: does not use ED Exam General Limitations: Present no limitations General appearance: Present alert and in no apparent distress Head Head exam: Present atraumatic Eye Eye exam: Present normal appearance, PERRL and EOMI ENT ENT exam: Present normal exam, normal oropharynx and mucous membranes moist Neck Neck exam: Present normal inspection, full ROM and trachea midline Chest Chest inspection: Present normal inspection and symmetric chest wall rise Respiratory Respiratory exam: Present normal lung sounds bilaterally Cardiovascular Cardiovascular exam: Present regular rate, normal rhythm and normal heart sounds Abdominal Exam Abdominal exam: Present soft and normal bowel sounds Extremities Exam Extremities exam: Present normal inspection and full ROM Back Exam Back exam: Present normal inspection and full ROM Neurological Exam Neurological exam: Present alert, oriented X3 and CN II-XII intact Psychiatric Psychiatric exam: Present normal affect and normal mood Skin Skin exam: Present warm, dry, intact and normal color Course Course Course Narrative: 83F with history of HTN presents to ED with elevated B and she's worried about it. Patient has no other complaints. Patient has been here twice in the last few days for this with normal cardiac work-up. Physical exam reveals normal pupil response and EOM. ENT clear. Lungs clear. RRR. Patient is afebrile, calm, and alert. EKG is NSR. 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 Quality Measures none Orders Category Date Time Status EKG (ED ONLY) *Do not use* NOW Care 03/26/24 23:36 Completed EKG (ED Only) Stat Exams 03/26/24 23:36 Ordered hydrALAZINE HCL [Apresoline] Med 03/27/24 00:35 Discontinued 25 mg PO X1 ONE Vital Signs Vital signs: Vital Signs Temperature 98.5 F 03/27/24 00:02 Pulse Rate 86 03/27/24 00:02 Respiratory Rate 17 03/27/24 00:02 Blood Pressure 185/80 H 03/27/24 00:02 Pulse Oximetry (%) 97 03/27/24 00:02 Oxygen Delivery Method Room Air 03/27/24 00:02 O2 at 97% on RA and WNLs MDM Patient data External records reviewed:: [facility] previous records Clinical information provided by:: patient Social determinants that could affect healthcare access:: none Patient has the following chronic illnesses:: HTN How is presenting disease/condition affected by chronic disease/condition?: caused by Evaluation data The following diagnostics were reviewed and interpreted by me:: EKG tracing(s) Lab and/or radiology exams considered but not ordered:: ordered Interpretation Summary: above Medications Medications considered but not ordered:: ordered Medication administrations:: Medication Administration History Discontinued Medications Hydralazine HCl (Hydralazine Hcl 25 Mg Tablet) 25 mg PO X1 ONE Stop: 03/27/24 00:36 Last Admin: 03/27/24 00:41 Dose: 25 mg Documented By: OA above Consultations Consultation(s) initiated? (list below): No Diagnosis Differential Diagnosis ED Complaint MDM: asymptomatic hypertensive urgency/emergency, ACS, SAH, anxiety Most likely diagnosis given after review of the tests above:: asymptomatic hypertensive urgency Admission Indicated Admission indicated?: not indicated Explain why admission is indicated or not indicated:: outpatient Admission Request Was there a request for admission?: No Disposition Plan Disposition Plan: Discharge Discharge Attestation Discharge Attestation: The patient and all family members were given an opportunity to ask questions and understood the discharge instructions. Discharge instructions specifically effects, indications for sooner follow up or return to the emergency department, and the expected course of current diagnosis. Patient condition: Stable Medical Decision Making Differential Diagnosis Differential Diagnosis: asymptomatic hypertensive urgency/emergency, ACS, SAH, anxiety Discharge Plan Plan Patient Disposition: HOME (Self Care) Disposition Comment: Stable Prescriptions/Referrals Prescriptions/Med Rec: No Action fenofibrate 160 MG tablet 160 mg PO QDAY Qty: 0 thyroid (pork) [[place] Thyroid] 60 MG tablet 60 mg PO QDAY Qty: 0 pantoprazole [Protonix] 40 MG tablet,delayed release (DR/EC) 40 mg PO QDAY Qty: 0 Patient Comments: TO SUPPRESS GASTRIC SECRETIONS estrogens-methyltestosterone 0.625-1.25 mg Tablet 1 tab PO QDAY pravastatin 40 mg Tablet 40 mg PO QDAY valsartan 160 mg Tablet 160 mg PO QDAY fenofibrate 160 mg Tablet 160 mg PO QDAY amlodipine 5 mg tablet 5 mg PO QDAY Qty: 30 0RF diclofenac-met salicyl-menthol 1-30-10 % combo pack,cream and gel See Rx Instructions .ROUTE .COMPLEX PRN (Reason: pain) Qty: 418 0RF Rx Instructions: APPLY TO MOST PAINFUL AREA Q12H PRN PAIN, INSTRUCTIONS IN [place] PLEASE Problem List Clinical Impression: Asymptomatic hypertensive urgency Patient/Caregiver Discharge Instructions Additional Instructions: Please follow-up with PCP within 24-48 hours and return immediately if symptoms worsen. Need to follow-up with PCP to optimize regimen. Print Language: Kiswahili Stand Alone Forms: Patient Portal Info Letter WILLIAMS/KYMBERLY Supervising Physician WILLIAMS/KYMBERLY Supervising Physician: Dr. Adame
== END 2024-03-27 01:03 | disposition home or self-care (01) ==
LOC: SERX 03-27 01:03
PROVIDERS: Emergency Provider Emergency Medicine
DX: I16.0 Hypertensive urgency (principal); R94.31 Abnormal electrocardiogram [ECG] [EKG]; I10 Essential (primary) hypertension; E78.00 Pure hypercholesterolemia, unspecified
CPT/HCPCS: 93005; 99283; A9270

== ENCOUNTER 2024-07-10 04:33 | Emergency (ER) | payer MEDICARE, MEDICAID, SELFPAY ==
[2024-07-10] VITALS (8 sets, daily range): BP systolic 104–212; BP diastolic 53–69; PULSE 46–66; RESP 16–18; TEMP 36.4–36.8; O2SAT 96–98
--- NOTE | 2024-07-10 04:53 | PD.EDDIZZY ---
ED Dizzyness RME/HPI General Chief Complaint: Fall Stated Complaint: FELL, HIT HEAD ,LAC Time Seen by Provider: 07/10/24 04:52 Arrival date/time: 07/10/24 04:33 RME / HPI RME / HPI Narrative: This section includes all my notes and documentations, including HPI, PE, and ED course. Matteo Swan MD HPI: 84-year-old female here to be evaluated after head injury at home just prior to arrival. While walking to the bathroom, she felt dizzy and tripped. And hit her head on her bathroom door. She reports head wound with active bleeding. She reports headache and dizziness currently. No speech or visual impairment. No neck pain or back pain. No chest pain or abdominal pain. No pain in the arms or legs. No loss of consciousness prior to the head injury or after the injury. She has trouble describing her dizziness. No loss of power in the arms or legs. No other complaints. ROS: All negative except as documented in HPI. Physical Exam: General: Alert and oriented. In obvious pain. Severely high BP noted. Eyes: Conjunctivae and lids clear. EOMI. PERRL. ENT: No nasal congestion. Pharynx normal. Tympanic membrane normal bilaterally. Neck: Supple. No tenderness. Heart: RRR. Lungs: No respiratory distress. Good air movement. No rhonchi, wheezing, rales. Chest: No tenderness. Abdomen: Soft and nontender. Back: No tenderness. Legs: No clubbing, cyanosis, edema. Skin: Warm and dry. In the right parietal scalp, there is a 7.5 cm full?scalp thickness laceration with active bleeding. Neuro: Alert and oriented X 3. Cranial Nerves II-XII grossly intact. No peripheral motor deficits. Musculoskeletal: All major joints and bones are not tender with no limited ROM. Laceration repair procedure note: The wound was prepped and draped in normal sterile fashion. Local anesthesia achieved with 1% lidocaine, 6 mL. Profuse irrigation performed with normal saline. Wound repaired with 10 jose. Good approximation and hemostasis achieved. Tdap and Keflex and Elon given. Topical ABX and dressing applied. Patient tolerated well with no complications. Clonidine 0.3 mg given. At 6 AM on 06/2324, the care of the patient was transferred to Dr. Ramires. Matteo Swan MD Related Data Home Medications ?Medication ?Instructions ?Recorded ?Confirmed fenofibrate 160 mg tablet 160 mg PO QDAY ##0 12/29/13 05/18/18 thyroid (pork) 60 mg tablet 60 mg PO QDAY #0 tabs 12/29/13 05/18/18 ([place] Thyroid) pantoprazole 40 mg tablet,delayed 40 mg PO QDAY ##0 08/19/14 05/18/18 release (Protonix) esterified 1 tab PO QDAY 05/18/18 05/18/18 estrogens-methyltestosterone 0.625 mg-1.25 mg tablet fenofibrate 160 mg tablet 160 mg PO QDAY 05/18/18 05/18/18 pravastatin 40 mg tablet 40 mg PO QDAY 05/18/18 05/18/18 valsartan 160 mg tablet 160 mg PO QDAY 05/18/18 05/18/18 Previous Rx's ?Medication ?Instructions ?Recorded diclofenac 1 % and meth salicylate See Rx Instructions .Route 04/17/22 30 %-menthol 10 % topical gel,cream .COMPLEX PRN pain #418 grams amlodipine 5 mg tablet 5 mg PO QDAY #30 tabs 05/10/22 Allergies Allergy/AdvReac Type Severity Reaction Status Date / Time codeine Allergy Severe SEVERE Verified 03/26/24 23:36 NAUSEA AND VOMITING Penicillins Allergy Unknown Verified 03/26/24 23:36 Course Quality Measures none Orders Category Date Time Status EKG (ED ONLY) *Do not use* NOW Care 07/10/24 05:24 Active Wound Care [Wound Care] NOW Care 07/10/24 05:[address] head/brain wo con Stat Exams 07/10/24 05:24 Ordered EKG (ED Only) Stat Exams 07/10/24 05:24 Ordered XR chest 1V portable Stat Exams 07/10/24 05:24 Ordered CBC Stat Lab 07/10/24 05:33 Ordered CMP [Comprehensive Metabolic Panel] Stat Lab 07/10/24 05:33 Ordered Magnesium Stat Lab 07/10/24 05:33 Ordered TSH [Thyroid Stimulating Hormone] Stat Lab 07/10/24 05:33 Ordered Troponin I Stat Lab 07/10/24 05:33 Ordered UA, C/S IF [Urinalysis, C/S if Indicated] Stat Lab 07/10/24 05:33 Ordered ACETAMINOPHEN w/COD 300-30 [Tylenol w/Cod #3] Med 07/10/24 05:03 Discontinued 2 tab PO X1 ONE Bacitracin Oint pkt Med 07/10/24 05:00 Discontinued 1 gm TOP X1 ONE HYDROcodone/APAP 10/325 [Elon 10/325] Med 07/10/24 05:16 Discontinued 1 tab PO X1 ONE Lidocaine 1% 20 ml [Xylocaine 1% 20 ML] Med 07/10/24 05:26 Discontinued 20 ml .ROUTE .STK-MED ONE Lidocaine 1% 20 ml [Xylocaine 1% 20 ML] Med 07/10/24 05:00 Discontinued 20 ml INFL X1 ONE TET,DIP/PERT AC (Adult)-Tdap [Boostrix Adult (Tdap) Med 07/10/24 05:00 Discontinued Vacc] 0.5 ml IMI .ONCE ONE cephALEXin [Keflex] Med 07/10/24 05:00 Discontinued 1,000 mg PO X1 ONE cloNIDine HCL [Catapres] Med 07/10/24 05:46 Once 0.1 mg PO X1 ONE cloNIDine HCL [Catapres] Med 07/10/24 04:59 Discontinued 0.2 mg PO X1 ONE Vital Signs Vital signs: Vital Signs Temperature 98.3 F 07/10/24 04:47 Pulse Rate 66 07/10/24 04:47 Respiratory Rate 18 07/10/24 04:47 Blood Pressure 212/66 H 07/10/24 04:47 Pulse Oximetry (%) 97 07/10/24 04:47 Dizziness Patient data External records reviewed:: [facility] previous records Clinical information provided by:: patient and family Social determinants that could affect healthcare access:: none Patient has the following chronic illnesses:: HTN How is presenting disease/condition affected by chronic disease/condition?: uneffected by Evaluation data The following diagnostics were reviewed and interpreted by me:: other (specify) (Diagnostics pending.) Lab and/or radiology exams considered but not ordered:: None Interpretation Summary: Diagnostics pending. Medications / Prescriptions Medications or Prescriptions considered but not ordered:: None Medication administrations:: Medication Administration History Discontinued Medications Acetaminophen/Codeine Phosphate (Acetaminophen W/Cod 300-30 Tablet) 2 tab PO X1 ONE Stop: 07/10/24 05:04 Last Admin: 07/10/24 05:39 Dose: Not Given Documented By: CCT Non-Admin Reason: Cancelled by Provider Hydrocodone Bitart/Acetaminophen (Hydrocodone/Apap 10/325 Tab) 1 tab PO X1 ONE Stop: 07/10/24 05:17 Last Admin: 07/10/24 05:39 Dose: 1 tab Documented By: CCT Bacitracin (Bacitracin Oint 1 Gm Packet) 1 gm TOP X1 ONE Stop: 07/10/24 05:01 Last Admin: 07/10/24 05:33 Dose: 1 gm Documented By: CCT Cephalexin HCl (Cephalexin 250 Mg Capsule) 1,000 mg PO X1 ONE Stop: 07/10/24 05:01 Last Admin: 07/10/24 05:37 Dose: 1,000 mg Documented By: CCT Clonidine (Clonidine Hcl 0.1 Mg Tablet) 0.2 mg PO X1 ONE Stop: 07/10/24 05:00 Last Admin: 07/10/24 05:32 Dose: 0.2 mg Documented By: CCT Diphtheria/Tetanus/Acell Pertussis (Diphth,Pertuss(Acell),Tet Vac 0.5 Ml Syr- Adult) 0.5 ml IMi .ONCE ONE Stop: 07/10/24 05:01 Last Admin: 07/10/24 05:37 Dose: 0.5 ml Documented By: CCT Lidocaine HCl (Lidocaine Hcl 1% 20 Ml Vial) 20 ml INFL X1 ONE Stop: 07/10/24 05:01 Last Admin: 07/10/24 05:39 Dose: 20 ml Documented By: CCT Comments: Administered by Dr. SWAN Lidocaine HCl (Lidocaine Hcl 1% 20 Ml Vial) Confirm Administered Dose 20 ml .ROUTE .STK-MED ONE Stop: 07/10/24 05:27 Last Admin: 07/10/24 05:40 Dose: Not Given Documented By: CCT Non-Admin Reason: Duplicate Medication on eMAR See chart. Consultations Consultation(s) initiated? (list below): No Diagnosis Dizziness Differential Diagnosis: adverse reaction to drug, benign paroxysmal positional vertigo, orthostatic hypotension, vertebral basilar insufficiency, cerebrovascular accident, acute vestibular neuronitis and transient cerebral ischemia Most likely diagnosis given after review of the tests above:: Diagnostics pending. Admission Indicated Admission indicated?: not indicated Explain why admission is indicated or not indicated:: Diagnostics pending. Admission Request Was there a request for admission?: No Disposition Plan Disposition Plan: other (specify) (Care transferred.) Discharge Plan Prescriptions/Referrals Prescriptions/Med Rec: No Action fenofibrate 160 MG tablet 160 mg PO QDAY Qty: 0 thyroid (pork) [[place] Thyroid] 60 MG tablet 60 mg PO QDAY Qty: 0 pantoprazole [Protonix] 40 MG tablet,delayed release (DR/EC) 40 mg PO QDAY Qty: 0 Patient Comments: TO SUP[employer]IONS estrogens-methyltestosterone 0.625-1.25 mg Tablet 1 tab PO QDAY pravastatin 40 mg Tablet 40 mg PO QDAY valsartan 160 mg Tablet 160 mg PO QDAY fenofibrate 160 mg Tablet 160 mg PO QDAY amlodipine 5 mg tablet 5 mg PO QDAY Qty: 30 0RF diclofenac-met salicyl-menthol 1-30-10 % combo pack,cream and gel See Rx Instructions .ROUTE .COMPLEX PRN (Reason: pain) Qty: 418 0RF Rx Instructions: APPLY TO MOST PAINFUL AREA Q12H PRN PAIN, INSTRUCTIONS IN [place] PLEASE Problem List Clinical Impression: Head injury, Dizziness, Scalp laceration, Hypertensive urgency Patient/Caregiver Discharge Instructions Print Language: Malay
--- NOTE | 2024-07-10 05:24 | XR_ITS ---
Examination: AP chest single view TECHNIQUE: AP portable semiupright chest single view Exam date and time: July 10, 2024 0445 hours INDICATIONS: Shortness of breath today. FINDINGS: Normal heart size No lobar pneumonia or pulmonary edema Moderate osteopenia IMPRESSION: No lobar pneumonia or pulmonary edema
--- NOTE | 2024-07-10 05:24 | EKG_ITS ---
[facility] Test Date: 2024-07-10 Pat Name: DYLON CHAVEZDepartment: Room: - Gender: Female Radio R[employer]: : [id number] Requested By: Matteo Keenan Order Number: [id number] Reading MD: Matteo Keenan Measurements Intervals [place] Rate: 49 P: 35 MA: 190 QRS: -24 QRSD: 96 T: 55 QT: 466 QTc: 424 Interpretive Statements SINUS BRADYCARDIA BORDERLINE LEFT AXIS DEVIATION [QRS AXIS < -20] Compared to ECG 03/27/2024 00:00:36 Sinus rhythm no longer present Myocardial infarct finding no longer present /store/S0/[id number]/ecg/[id number].pdf
--- NOTE | 2024-07-10 05:24 | XR_ITS ---
Examination: CT brain head without contrast. 2-D sagittal coronal reconstructions Date and time of exam:July 10, 2024 0540 hours Comparison March 16, 2024 INDICATIONS: Patient fell today with injury to the head, head pain CTDI: vol (mGy):47.1 DLP: (mGycm):957 Technique: Multiple CT axial sections of the brain have been obtained, 5 mm slice thickness. Contrast has not been administered. 2-D sagittal, coronal reconstructions have been obtained Low dose protocols were performed. One or more of the following dose reduction techniques were used; automated exposure control, adjustment of the mA and/or KV according to patient size, use of iterative reconstruction technique. Findings: No significant ventricular enlargement. Intra-axial or extra-axial hemorrhage density is not seen. No mass effect or midline shift Basal cisterns are not remarkable. Fourth ventricle is midline. Cranial vault intact. Soft tissue right frontal scalp swelling Impression: Negative for acute hemorrhage, mass effect or midline shift
[2024-07-10] MEDS: cloNIDine HCL 0.1 MG TABLET 0.2 MG PO (05:32)
[2024-07-10] MEDS: BACITRACIN OINT 1 GM PACKET TOP (05:33)
[2024-07-10] MEDS: DIPHTH,PERTUSS(ACELL),TET VAC 0.5 ML SYR- ADULT IMi (05:37)
[2024-07-10] MEDS: cephALEXin 250 MG CAPSULE 1000 MG PO (05:37)
[2024-07-10] MEDS: LIDOCAINE HCL 1% 20 ML VIAL INFL (05:39)
[2024-07-10] MEDS: HYDROcodone/APAP 10/325 TAB PO (05:39)
--- NOTE | 2024-07-10 06:02 | EDNOTE_ITS ---
Emergency Room Addendum <Vanita Sky - Last Filed: 07/10/24 12:13> Addendum Narrative: 0600: Care assumed from Dr. Miller, the previous shift emergency physician. Past medical, surgical, social and family history reviewed. Vitals and home medications reviewed. I will assume the care of the patient at this time. Please refer to the emergency department record for history and examination from initial visit.? Physical exam by me shows patient under no acute distress at this time. She is alert awake smiling. No longer having any vertigo. Evidently she was in the bathroom started having vertigo and hit the door and sustained a laceration to her scalp which was repaired by Dr. Miller prior to my shift. Patient blood pressure was quite high she has had some clonidine now and the latest blood pressure is 163 systolics. She got her tetanus updated. Lab studies are ordered and pending as of [address] of head was read by myself which reveals no obvious skull fracture. The frontal lobes especially have's atrophy with the ventricles are with compensatory enlargement presumably chronic. There is no acute blood seen. There is not appear to be any acute process. Chest x-ray one-view portable read by myself reveals metallic bra parts in the view, heart is normal size there is no infiltrate or effusion seen. No acute. Soft tissues within normal limits EKG#1: EKG at 0755 hours. Interpreted by me: sinus bradycardia, rate 49 no STEMI UA CBC and competence of metabolic panel are still pending as of 0643 hrs. 1115: Re-assessment at the time demonstrates that the patient is in no acute distress. She is not dizzy at this time. We will do a road test and then discharge home. 1159: Patient did well with the road test and will be discharged home. Diagnoses: head injury, dizziness, scalp laceration, hypertensive urgency, history of vertigo. RADIOLOGY Procedure(s): XR chest 1V portable Accession Number(s): [id number] cc: Matteo Miller MD; Erich Valenzuela MD; Keith Lopez MD~ Examination: AP chest single view TECHNIQUE: AP portable semiupright chest single view Exam date and time: July 10, 2024 0445 hours INDICATIONS: Shortness of breath today. FINDINGS: Normal heart size No lobar pneumonia or pulmonary edema Moderate osteopenia IMPRESSION: No lobar pneumonia or pulmonary edema Dictated By: Erich Valenzuela MD ------- Procedure(s): CT head/brain wo con Accession Number(s): [id number] cc: Matteo Miller MD; Erich Valenzuela MD; Keith Lopez MD~ Examination: CT brain head without contrast. 2-D sagittal coronal reconstructions Date and time of exam:July 10, 2024 0540 hours Comparison March 16, 2024 INDICATIONS: Patient fell today with injury to the head, head pain CTDI: vol (mGy):47.1 DLP: (mGycm):957 Technique: Multiple CT axial sections of the brain have been obtained, 5 mm slice thickness. Contrast has not been administered. 2-D sagittal, coronal reconstructions have been obtained Low dose protocols were performed. One or more of the following dose reduction techniques were used; automated exposure control, adjustment of the mA and/or KV according to patient size, use of iterative reconstruction technique. Findings: No significant ventricular enlargement. Intra-axial or extra-axial hemorrhage density is not seen. No mass effect or midline shift Basal cisterns are not remarkable. Fourth ventricle is midline. Cranial vault intact. Soft tissue right frontal scalp swelling Impression: Negative for acute hemorrhage, mass effect or midline shift Dictated By: Erich Valenzuela MD <Sarath Ramires MD - Last Filed: 07/10/24 14:07> Addendum Narrative: 0600: Care assumed from Dr. Miller, the previous shift emergency physician. Past medical, surgical, social and family history reviewed. Vitals and home medications reviewed. I will assume the care of the patient at this time. Please refer to the emergency department record for history and examination from initial visit.? Physical exam by me shows patient under no acute distress at this time. She is alert awake smiling. No longer having any vertigo. Evidently she was in the bathroom started having vertigo and hit the door and sustained a laceration to her scalp which was repaired by Dr. Miller prior to my shift. Patient blood pressure was quite high she has had some clonidine now and the latest blood pressure is 163 systolics. She got her tetanus updated. Lab studies are ordered and pending as of [address] of head was read by myself which reveals no obvious skull fracture. The frontal lobes especially have's atrophy with the ventricles are with compensatory enlargement presumably chronic. There is no acute blood seen. There is not appear to be any acute process. Chest x-ray one-view portable read by myself reveals metallic bra parts in the view, heart is normal size there is no infiltrate or effusion seen. No acute. Soft tissues within normal limits EKG#1: EKG at 0755 hours. Interpreted by me: sinus bradycardia, rate 49 no STEMI UA CBC and competence of metabolic panel are still pending as of 0643 hrs. 1115: Re-assessment at the time demonstrates that the patient is in no acute distress. She is not dizzy at this time. We will do a road test and then discharge home. 1159: Patient did well with the road test and will be discharged home. Both patient and daughter were advised at great length how to manage the vertigo to avoid accidents. Patient's blood pressure came down with the clonidine down to 05/10/1939 range. So the hypertensive urgency was managed well with the clonidine. Patient was to restart her usual morning blood pressure medications. This was verbally communicated. In the UA was a nonclean-catch specimen with 43 white cells 12 red cells and 30 squames and patient had no urinary symptoms so I chose not to treat this. As it is unlikely patient can actually perform a clean-catch midstream urine. Patient knows to return if getting worse in any way. Follow-up with doctor for any further evaluation of the vertigo if it continues to persist. Diagnoses: head injury, dizziness, scalp laceration, hypertensive urgency, history of vertigo. RADIOLOGY Procedure(s): XR chest 1V portable Accession Number(s): [id number] cc: Matteo Miller MD; Erich Valenzuela MD; Keith Lopez MD~ Examination: AP chest single view TECHNIQUE: AP portable semiupright chest single view Exam date and time: July 10, 2024 0445 hours INDICATIONS: Shortness of breath today. FINDINGS: Normal heart size No lobar pneumonia or pulmonary edema Moderate osteopenia IMPRESSION: No lobar pneumonia or pulmonary edema Dictated By: Erich Valenzuela MD Procedure(s): CT head/brain wo con Accession Number(s): [id number] cc: Matteo Miller MD; Erich Valenzuela MD; Keith Lopez MD~ Examination: CT brain head without contrast. 2-D sagittal coronal reconstructions Date and time of exam:July 10, 2024 0540 hours Comparison March 16, 2024 INDICATIONS: Patient fell today with injury to the head, head pain CTDI: vol (mGy):47.1 DLP: (mGycm):957 Technique: Multiple CT axial sections of the brain have been obtained, 5 mm slice thickness. Contrast has not been administered. 2-D sagittal, coronal reconstructions have been obtained Low dose protocols were performed. One or more of the following dose reduction techniques were used; automated exposure control, adjustment of the mA and/or KV according to patient size, use of iterative reconstruction technique. Findings: No significant ventricular enlargement. Intra-axial or extra-axial hemorrhage density is not seen. No mass effect or midline shift Basal cisterns are not remarkable. Fourth ventricle is midline. Cranial vault intact. Soft tissue right frontal scalp swelling Impression: Negative for acute hemorrhage, mass effect or midline shift Dictated By: Erich Valenzuela MD
[2024-07-10 06:28] LABS: Basophils # (Auto) 0.1 Thou/mm3 (0.0-0.2); Basophils % (Auto) 1 % (0-2.5); Eosinophils # (Auto) 0.2 Thou/mm3 (0.0-0.5); Eosinophils % (Auto) 2 % (0-10); Hematocrit 36.5 % (36.0-46.0); Hemoglobin 12.5 g/dL (12.0-16.0); Immature Granulocytes % (Auto) 1 % (0-0); Immature Granulocytes Auto 0.04 Thou/mm3 (0.00-0.00); Lymphocytes # (Auto) 2.4 Thou/mm3 (1.0-4.8); Lymphocytes % (Auto) 32 % (10-50); Mean Corpuscular HGB Conc 34.2 g/dl (31.0-37.0); Mean Corpuscular Hemoglobin 31.6 pg (25.0-35.0); Mean Corpuscular Volume 92 fL (80-100); Monocytes # (Auto) 0.8 Thou/mm3 (0.0-0.8); Monocytes % (Auto) 11 % (0-12); Neutrophils # (Auto) 3.9 Thou/mm3 (1.8-7.7); Neutrophils % (Auto) 53 % (37-80); Nucleated Red Blood Cell % 0 /100 WBC (0); Platelet Count 269 Thou/mm3 (140-440); RDW Standard Deviation 47.1 fL (36.4-46.3); Red Blood Count 3.96 Miln/mm3 (4.00-5.20); White Blood Count 7.3 Thou/mm3 (3.6-11.0)
--- NOTE | 2024-07-10 06:45 | PC.NURSE ---
Pt able to sit and stand without difficulty, denied any dizziness. However, when pt started to ambulate out of room, pt stated she was dizzy. Pt then ambulated back to bed with assist. Pt is alert/oriented x3. Respirations are even and unlabored. Call light within reach, daughter at bedside. Discussed plan of care, verbalized understanding.
[2024-07-10 06:52] LABS: Alanine Aminotransferase 23 U/L (10-49); Albumin, Serum 4.4 gm/dL (3.4-4.8); Albumin/Globulin Ratio 1.7 (1.2-2.2); Alkaline Phosphatase 43 U/L (46-116); Anion Gap 6 (7-16); Aspartate Amino Transferase 26 U/L (0-34); BUN/Creatinine Ratio 11 Ratio (12-20); Bilirubin,Total 0.5 mg/dL (0.3-1.2); Blood Urea Nitrogen 9 mg/dL (9-23); Calcium 9.5 mg/dL (8.3-10.6); Calcium (Corrected) 9.5 mg/dL (8.5-10.1); Carbon Dioxide 25.7 mMol/L (20.0-31.0); Chloride 104 mMol/L (98-107); Creatinine (Component) 0.8 mg/dL (0.6-1.3); Globulin 2.6 gm/dL (2.3-3.5); Glucose 116 mg/dL (74-106); Magnesium 1.8 mg/dL (1.6-2.6); Osmolality,Calculated 271 (275-295); Potassium 4.3 mMol/L (3.4-5.1); Sodium 136 mMol/L (136-145); Thyroid Stimulating Hormone 0.75 uIU/mL (0.55-4.78); Troponin I < 0.020 ng/mL (0.0-0.045); eGFR > 60 See Note
[2024-07-10 08:46] LABS: Collection Type, Urine Clean Catch
[2024-07-10 09:22] LABS: Amorphous Crystals,Urine Present (Absent); Bacteria,Urine 1+; Bilirubin,Urine Negative (Negative); Blood,Urine Trace (Negative); Clarity,Urine Turbid (Clear/Hazy); Color,Urine Colorless (Lt Yel-Yel); Culture Indicated,Urine Contaminated; Glucose, Urine Negative (Negative); Ketones,Urine Negative (Negative); Leukocyte Esterase,Urine Positive (Negative); Nitrite,Urine Negative (Negative); Protein,Urine Negative (Neg - Trace); RBC,Urine 12 /hpf (0-3); Squamous Epithelial Cell,Urine 30 /hpf (0-5); Transitional Epi Cells,Urine 2 /hpf (0-5); Urobilinogen,Urine Negative mg/dL (0.0-1.0); WBC,Urine 43 /hpf (0-5)
--- NOTE | 2024-07-10 11:39 | PC.NURSE ---
PT AMBULATED 80 FEET WITH MINIMAL DIZZINESS.
== END 2024-07-10 12:09 | disposition home or self-care (01) ==
PROVIDERS: Emergency Medicine; Emergency Provider Emergency Medicine; PCP Family Medicine
DX: S01.01XA Laceration without foreign body of scalp, initial encounter (principal); I16.0 Hypertensive urgency; R42 Dizziness and giddiness; R00.1 Bradycardia, unspecified; R06.02 Shortness of breath; I10 Essential (primary) hypertension; W01.198A Fall on same level from slipping, tripping and stumbling with subsequent striking against other object, initial encounter; Y93.01 Activity, walking, marching and hiking; Z23 Encounter for immunization
CPT/HCPCS: 12002; 36415; 70450; 71045; 80053; 81001; 83735; 84443; 84484; 85025; 90471; 90715; 93005; 99284; J3490; A9270

== ENCOUNTER 2024-07-11 11:43 | Emergency (ER) | payer MEDICARE, MEDICAID, SELFPAY ==
[2024-07-11 12:00] VITALS: BP 152/69; PULSE 67; RESP 20; TEMP 37.3; O2SAT 98; BMI 24.5
--- NOTE | 2024-07-11 12:23 | PD.EDADDENDU ---
Emergency Room Addendum Addendum Narrative: Patient comes back with the daughter and Nicolás the nurse practitioner as become in the room and we reevaluated patient in the triage area as they are here believing they were instructed to come back to get an MRI patient is doing well there is no nausea vomit she is having no vertigo now she has no symptoms no weakness she is absolutely acting her usual self other than she is got jose in her head. We had a long discussion and reexplain things and that they can follow-up with her regular doctor and if they feel an MRI is needed as an outpatient they can get that done. Though she has intermittent bouts of vertigo with normal symptomatology and no loss of function in any of her extremities and no balance disturbance. There is no nausea vomiting. She knows to follow-up with her doctor for a wound check and staple removal in 5 to 6 days from today. Patient will be disposed by the nurse practitioner.
== END 2024-07-11 12:57 | disposition home or self-care (01) ==
LOC: SERX 13:06
PROVIDERS: Emergency Provider Emergency Medicine
DX: R42 Dizziness and giddiness (principal)
CPT/HCPCS: 99281

== ENCOUNTER → 2024-10-14 | Outpatient (CLI) | payer MEDICARE, MEDICAID, SELFPAY ==
--- NOTE | 2024-10-14 15:45 | XR_ITS ---
Examination: Thyroid sonography complete TECHNIQUE: Grayscale sonographic images thyroid lobes INDICATIONS: History upper left thyroid nodule Date and time: October 14, 2024 1532 hours: FINDINGS: Right thyroid 3.2 cm Midpole cyst 3 x 3 mm Lower pole vascular nodule 7 x 6 mm Left thyroid 3.1 cm Mid to lower pole vascular left thyroid nodule 1.9 x 1.1 x 1.5 cm IMPRESSION: Thyroid nodules as above Consider ultrasound-guided fine-needle aspiration of the vascular mid to lower pole left thyroid nodule, 1.9 x 1.1 x 1.5 cm
== END | disposition home or self-care (01) ==
PROVIDERS: PCP Family Medicine; Referring Provider Family Medicine; Visit Provider Family Medicine
DX: E04.2 Nontoxic multinodular goiter (principal)
CPT/HCPCS: 76536

== ENCOUNTER → 2025-01-31 | Outpatient (CLI) | payer MEDICARE, MEDICAID, SELFPAY ==
[2025-01-30 13:26] LABS: Basophils # (Auto) 0.0 Thou/mm3 (0.0-0.2); Basophils % (Auto) 1 % (0-2.5); Eosinophils # (Auto) 0.1 Thou/mm3 (0.0-0.5); Eosinophils % (Auto) 1 % (0-10); Hematocrit 36.1 % (36.0-46.0); Hemoglobin 12.2 g/dL (12.0-16.0); Immature Granulocytes Auto 0.03 Thou/mm3 (0.00-0.00); Lymphocytes # (Auto) 2.0 Thou/mm3 (1.0-4.8); Lymphocytes % (Auto) 30 % (10-50); Mean Corpuscular HGB Conc 33.8 g/dl (31.0-37.0); Mean Corpuscular Hemoglobin 31.3 pg (25.0-35.0); Mean Corpuscular Volume 93 fL (80-100); Monocytes # (Auto) 0.6 Thou/mm3 (0.0-0.8); Monocytes % (Auto) 8 % (0-12); Neutrophils # (Auto) 4.1 Thou/mm3 (1.8-7.7); Neutrophils % (Auto) 60 % (37-80); Nucleated Red Blood Cell # 0.00 Thou/mm3 (0.00-0.00); Nucleated Red Blood Cell % 0 /100 WBC (0); Platelet Count 288 Thou/mm3 (140-440); RDW Standard Deviation 45.3 fL (36.4-46.3); Red Blood Count 3.90 Miln/mm3 (4.00-5.20); White Blood Count 6.7 Thou/mm3 (3.6-11.0)
[2025-01-30 13:41] LABS: INR 1.1 (0.9-1.3); Partial Thromboplastin Time 22.7 Seconds (22.0-36.0); Prothrombin Time 11.4 Seconds (9.0-12.2)
--- NOTE | 2025-01-31 09:00 | XR_ITS ---
EXAM: Ultrasound-guided thyroid biopsy INDICATION: Left thyroid nodule. DATE: 01/31/2025, 10:05 a.m. PROCEDURE: After discussion of risks and benefits informed consent was obtained. Patient was placed supine on the exam table in the ultrasound weight. Preliminary ultrasound evaluation again demonstrated an isoechoic left thyroid nodule. This was targeted for fine needle aspiration. The overlying skin was cleaned and draped in normal sterile surgical fashion. 10 cc of 1% lidocaine was used for local anesthesia. Using ultrasound guidance multiple 25-gauge needles were sequentially advanced into the targeted nodule under direct ultrasound visualization. Samples were placed in solution and sent to the lab for analysis. Needle was withdrawn. Hemostasis was achieved. The access site was covered with a sterile dressing. There were no immediate complications. IMPRESSION: Successful ultrasound guided biopsy of left thyroid nodule as above.
== END | disposition home or self-care (01) ==
LOC: SIRX 08:41
PROVIDERS: PCP Family Medicine; Referring Provider Family Medicine; Visit Provider Radiology Diagnostic Radiology
DX: E04.1 Nontoxic single thyroid nodule (principal)
CPT/HCPCS: 10005; 36415; 85025; 85610; 85730

== ENCOUNTER → 2025-03-27 | Outpatient (CLI) | payer MEDICARE, MEDICAID, SELFPAY ==
[2025-03-24 11:31] LABS: Basophils # (Auto) 0.1 Thou/mm3 (0.0-0.2); Basophils % (Auto) 1 % (0-2.5); Eosinophils # (Auto) 0.1 Thou/mm3 (0.0-0.5); Eosinophils % (Auto) 2 % (0-10); Hematocrit 34.3 % (36.0-46.0); Hemoglobin 11.5 g/dL (12.0-16.0); Immature Granulocytes Auto 0.03 Thou/mm3 (0.00-0.00); Lymphocytes # (Auto) 2.5 Thou/mm3 (1.0-4.8); Lymphocytes % (Auto) 44 % (10-50); Mean Corpuscular HGB Conc 33.5 g/dl (31.0-37.0); Mean Corpuscular Hemoglobin 31.1 pg (25.0-35.0); Mean Corpuscular Volume 93 fL (80-100); Monocytes # (Auto) 0.5 Thou/mm3 (0.0-0.8); Monocytes % (Auto) 9 % (0-12); Neutrophils # (Auto) 2.5 Thou/mm3 (1.8-7.7); Neutrophils % (Auto) 44 % (37-80); Nucleated Red Blood Cell # 0.00 Thou/mm3 (0.00-0.00); Nucleated Red Blood Cell % 0 /100 WBC (0); Platelet Count 269 Thou/mm3 (140-440); RDW Standard Deviation 44.8 fL (36.4-46.3); Red Blood Count 3.70 Miln/mm3 (4.00-5.20); White Blood Count 5.7 Thou/mm3 (3.6-11.0)
[2025-03-24 11:40] LABS: INR 1.1 (0.9-1.3); Partial Thromboplastin Time 23.5 Seconds (22.0-36.0); Prothrombin Time 11.7 Seconds (9.0-12.2)
--- NOTE | 2025-03-27 09:00 | XR_ITS ---
Exam: Ultrasound-guided left thyroid biopsy. Date and time: 03/27/2025, 10:01 a.m. Indication: Thyroid nodule Technique: After a discussion of risks and benefits informed written consent was obtained. A timeout was completed verifying correct patient, procedure, site, positioning. The patient was placed in the supine position on the exam table. Preliminary ultrasound examination demonstrated a heterogeneous low density nodule in the left thyroid lobe. This was targeted for fine-needle aspiration. The overlying skin was cleaned and draped in normal sterile surgical fashion. 10 cc of 1% lidocaine was used for local anesthesia. Using ultrasound guidance a 25-gauge needle was sequentially advanced into the targeted mass. Multiple aspirates were obtained and placed in solution and sent to laboratory for analysis. The needle was withdrawn and hemostasis was achieved. The access site was covered with a sterile dressing. There were no immediate complications. IMPRESSION: Successful left thyroid nodule fine needle aspiration as above.
== END | disposition home or self-care (01) ==
LOC: SIRX 08:54
PROVIDERS: Radiology Diagnostic Radiology; PCP Family Medicine; Referring Provider Family Medicine; Visit Provider Family Medicine
DX: E04.1 Nontoxic single thyroid nodule (principal)
CPT/HCPCS: 10005; 36415; 85025; 85610; 85730